=== PATIENT | female | born 1990 | race Two or more races ===

== ENCOUNTER → 2024-05-02 | Outpatient (CLI) | payer MEDICAID, SELFPAY ==
--- NOTE | 2024-05-02 08:30 | XR_ITS ---
Examination: Abdomen sonogram, complete Date and time of exam: May 02, 2024 0903 hours INDICATIONS: Preop bariatric surgery. Technique: Multiple real-time grayscale transabdominal sonographic images of the abdomen have been obtained. Findings: Normal gallbladder. Normal common bile duct 0.4 cm Pancreatic head 3.0 cm Aorta not enlarged Liver 18.3 cm fatty liver Normal hepatopedal portal venous flow Patent IVC Right kidney 12.1 x 6.2 x 5.8 cm cortex 1.4 cm Left kidney 13.2 x 5.7 x 5.9 cm cortex 1.6 cm Mild bilateral renal parenchymal scar formation No hydronephrosis Spleen 9.7 cm IMPRESSION: Normal gallbladder Mild hepatomegaly fatty liver Mild bilateral renal parenchymal scar formation
== END | disposition home or self-care (01) ==
PROVIDERS: PCP Physician Assistant; Referring Provider Surgery; Visit Provider Surgery
DX: K76.0 Fatty (change of) liver, not elsewhere classified (principal); N28.89 Other specified disorders of kidney and ureter
CPT/HCPCS: 76700

== ENCOUNTER → 2024-05-10 | Outpatient (CLI) | payer MEDICAID, SELFPAY ==
--- NOTE | 2024-05-10 09:00 | XR_ITS ---
Examination: Esophagram standard Fluoroscopy 26 by fluoroscopic films of the esophagus Exam date and time: May 10, 2024 10:25 AM INDICATIONS: Heartburn history 2 years, preop gastric bypass surgery TECHNIQUE AND FINDINGS: Cancer Registry Manager AP supine abdomen nonobstructive bowel gas pattern Patient swallowed thin barium with primary peristaltic esophageal waves noted 26 spot fluoroscopic films of the esophagus fluoroscopy 0.2 minute radiation dose 103.43 milligray No constricting esophageal lesion Mild intermittent gastroesophageal reflux. No stricture at the gastroesophageal junction No esophageal ulcerations IMPRESSION: Mild intermittent gastroesophageal reflux
== END | disposition home or self-care (01) ==
LOC: SDIM 09:37
PROVIDERS: PCP Physician Assistant; Referring Provider Surgery; Visit Provider Surgery
DX: K21.9 Gastro-esophageal reflux disease without esophagitis (principal)
CPT/HCPCS: 74220